=== PATIENT | male | born 1945 | race Caucasian/White ===

== ENCOUNTER → 2017-02-18 | Outpatient (CLI) | payer MEDICARE, BC | LOC: MW.CHUR 12:55 | PROVIDERS: ATTEND Urology | DX: C67.9 Malignant neoplasm of bladder, unspecified (principal) | CPT/HCPCS: 52000; 81001; J2250 ==

== ENCOUNTER 2017-02-26 06:26 | Day surgery (SDC) | payer MEDICARE, BC ==
[~2017-02-26 06:26] MED LIST: Lactated Ringers 1,000 ML IV SCH; ceFAZolin 1 GM in Premix Bag 1 BAG IV ONE
--- NOTE | 2017-02-26 07:36 | PCM.PREANE ---
Preanesthetic Assessment - Anesthesia/Transfusion/Family Hx Anesthesia History: Prior Anesthesia Without Reaction Family History of Anesthesia Reaction: No Transfusion History: No Prior Transfusion(s) - Review of Systems General: No Symptoms Pulmonary: No Symptoms Cardiovascular: No Symptoms Gastrointestinal: No symptoms Neurological: No Symptoms Other: Reports: None - Physical Assessment NPO Status Date: 02/25/17 O2 Sat by Pulse Oximetry: 98 Respiratory Rate: 16 Vital Signs: Last Vital Signs Temp 36.1 C 02/26/17 06:44 Pulse 66 02/26/17 06:44 Resp 16 02/26/17 06:44 BP 140/75 02/26/17 06:44 Pulse Ox 98 02/26/17 06:44 Height: 1.75 m Weight: 89.358 kg ASA Class: 2 Mental Status: Alert & Oriented x3 Airway Class: Mallampati = 1 Dentition: Reports: Broken Tooth/Teeth ROM/Head Extension: Full Lungs: Clear to auscultation, Normal respiratory effort Cardiovascular: Regular Rate, Regular Rhythm - Allergies Allergies/Adverse Reactions: Allergies Allergy/AdvReac Type Severity Reaction Status Date / Time No Known Allergies Allergy Verified 02/23/17 12:39 - Anesthesia Plan Pre-Op Medication Ordered: None - Acknowledgements Anesthesia Type Planned: General Anesthesia Pt an Appropriate Candidate for the Planned Anesthesia: Yes Alternatives and Risks of Anesthesia Discussed w Pt/Guardian: Yes Pt/Guardian Understands and Agrees with Anesthesia Plan: Yes PreAnesthesia Questionnaire HEENT History: Reports: Other (see below) Other HEENT History: wears glasses Cardiovascular History: Reports: High cholesterol Other Cardiovascular History: states "had issue in the past where the ventricle bulged out but was checked out and everything was fine" Genitourinary History: Reports: Renal calculus Endocrine/Metabolic History: Reports: Hypothyroidism Oncologic (Cancer) History: Reports: Bladder - Past Surgical History Head Surgeries/Procedures: Reports: None Other Female Surgeries/Procedures: cysto with TURBT on 09/29/16 Male Surgical History: Reports: TURBT-Transurethral resection of bladder tumor, Other (see below) Musculoskeletal Surgical History: Reports: Arthroscopic knee Other Musculoskeletal Surgeries/Procedures:: left knee surgery and achilles tendon repair - SUBSTANCE USE Smoking Status *Q: Former Smoker Tobacco Use Within Last Twelve Months: No Recreational Drug Use History: No - HOME MEDS Home Medications: Home Meds Ascorbic Acid [Vitamin C] 1,000 mg PO DAILY 02/23/17 [History] Levothyroxine Sodium [Levoxyl] 100 mcg PO DAILY 02/23/17 [History] Vitamin A 25,000 unit PO DAILY 02/23/17 [History] Vitamin E 400 unit PO DAILY 02/23/17 [History] atorvaSTATin [Lipitor] 20 mg PO DAILY 02/23/17 [History] - CURRENT (IN HOUSE) MEDS Current Meds: Current Medications Lactated Ringer's (Ringers, Lactated) 1,000 mls @ 100 mls/hr IV [facility] Last Admin: 02/26/17 06:47 Dose: 100 mls/hr Discontinued Medications Cefazolin Sodium/Dextrose 1 gm (/ Premix) 50 mls @ 100 mls/hr IV ONCALL ONE Stop: 02/26/17 00:34 Preanesthetic Assessment - ANESTHESIA/TRANSFUSION/FAMILY HX Family History of Anesthesia Reaction: No - PHYSICAL ASSESSMENT O2 Sat by Pulse Oximetry: 98 RR: 16 Vital Signs: Last Vital Signs Temp 36.1 C 02/26/17 06:44 Pulse 66 02/26/17 06:44 Resp 16 02/26/17 06:44 BP 140/75 02/26/17 06:44 Pulse Ox 98 02/26/17 06:44 Height: 1.75 m Weight: 89.358 kg - ALLERGIES Allergies/Adverse Reactions: Allergies Allergy/AdvReac Type Severity Reaction Status Date / Time No Known Allergies Allergy Verified 02/23/17 12:39
[2017-02-26] MEDS ORDERED: Iopamidol 408 MG/ML 50 ML SDV ONE (07:50)
[2017-02-26] MEDS ORDERED: Midazolam 1 MG/ML 2 ML SDV ONE (07:50)
[2017-02-26] MEDS ORDERED: Lidocaine 2% 5 ML SDV ONE (07:50)
[2017-02-26] MEDS ORDERED: fentaNYL 100 MCG/2 ML SDV ONE ×2 (07:50→08:52)
[2017-02-26] MEDS ORDERED: Propofol 200 MG/20 ML SDV ONE (07:50)
[2017-02-26] MEDS ORDERED: Sodium Chloride 0.9% 20 ML ONE (07:51)
[2017-02-26] MEDS ORDERED: ceFAZolin 1 GM Vial ONE (07:51)
[2017-02-26] MEDS ORDERED: Phenylephrine/Normal Saline 100 MCG/ML 10 ML Syringe ONE (08:17)
[2017-02-26] MEDS ORDERED: Ondansetron 4 MG/2 ML SDV ONE (08:32)
[2017-02-26] MEDS ORDERED: fentaNYL 100 MCG/2 ML SDV IVPUSH PRN (08:46)
--- NOTE | 2017-02-26 09:28 | PCM.POSTAN ---
POST ANESTHESIA ASSESSMENT - MENTAL STATUS Mental Status: alert, oriented - RESPIRATORY Respiratory Status: respiratory rate WNL, airway patent, O2 saturation stable - CARDIOVASCULAR CV Status: pulse rate WNL, blood pressure stable - GASTROINTESTINAL GI Status: no symptoms - POST OP HYDRATION Hydration Status: adequate & stable
--- NOTE | 2017-02-26 10:07 | PCM48HPAN ---
Post Anesthesia Note - EVALUATION WITHIN 48HRS OF ANESTHETIC Vital Signs in Normal Range: Yes Patient Participated in Evaluation: Yes Respiratory Function Stable: Yes Airway Patent: Yes Cardiovascular Function Stable: Yes Hydration Status Stable: Yes Pain Control Satisfactory: Yes Nausea and Vomiting Control Satisfactory: Yes Mental Status Recovered: Yes
[2017-02-26 10:28] VITALS: BP 122/71
--- NOTE | 2017-02-26 13:07 | OR ---
SURGEON: Carole Kwon M.D. DATE OF PROCEDURE: 02/26/2017 PREOPERATIVE DIAGNOSIS: Bladder stones. POSTOPERATIVE DIAGNOSIS: Bladder stones. OPERATION: Cystolithotripsy. DESCRIPTION OF PROCEDURE: The patient was given general anesthesia, placed in the dorsal lithotomy position, prepped and draped with sterile drapes. Cystourethroscopy was done. He does have a prominent median lobe and he has 2 stones in the bladder. The largest is about 1.5 cm, the other one is about 1 cm. The laser was used to break stones into multiple small pieces which were then irrigated. The coude- tip catheter was left in the bladder for drainage that needs to be taken out tomorrow morning. WENDY / JOSE MANUEL /[id number]
== END 2017-02-26 10:51 | disposition home or self-care (01) ==
LOC: MW.SDS 06:26
PROVIDERS: ATTEND Urology
PROC: 0TCB8ZZ Extirpation of Matter from Bladder, Via Natural or Artificial Opening Endoscopic (ICD-10-PCS; principal; 2017-02-26)
DX: N21.0 Calculus in bladder (principal); E03.9 Hypothyroidism, unspecified; E78.00 Pure hypercholesterolemia, unspecified; Z87.442 Personal history of urinary calculi; Z85.51 Personal history of malignant neoplasm of bladder; Z87.891 Personal history of nicotine dependence; Z79.899 Other long term (current) drug therapy; Z98.890 Other specified postprocedural states
CPT/HCPCS: 52317; J0690; J2250; J2405; J3010; J7120; 00910; 88300; J2704; Q9966

== ENCOUNTER 2019-02-10 23:59 | Emergency (ER) | payer MEDICARE, BC | END 2019-02-11 00:13 | disposition left against medical advice (07) | LOC: MW.ED 23:59 | DX: Z53.21 Procedure and treatment not carried out due to patient leaving prior to being seen by health care provider (principal) | CPT/HCPCS: 99281 ==